=== PATIENT | male | born 1935 ===

== ENCOUNTER 2019-01-20 09:09 | Day surgery (SDC) | payer MEDICARE, OTHER ==
[~2019-01-20 09:09] MED LIST: Cefuroxime 10 MG/ML SYRINGE EYERT SCH; Lidocaine 1% PF 2 ML SDV INJECT SCH; Pilocarpine 4% Ophth Soln 15 ML Bot EYERT SCH
[2019-01-20] MEDS: Polymyxin B/Trimethoprim 10 ML Bottle EYERT SCH ×3 (09:31→12:01)
--- NOTE | 2019-01-20 09:33 | PCM.PREANE ---
Preanesthetic Assessment - Procedure Proposed Procedure: cataract extraction with IOL right eye - Anesthesia/Transfusion/Family Hx Anesthesia History: Prior Anesthesia Without Reaction Family History of Anesthesia Reaction: No Transfusion History: No Prior Transfusion(s) - Review of Systems General: No Symptoms Pulmonary: No Symptoms Cardiovascular: No Symptoms Gastrointestinal: No Symptoms Neurological: Numbness (bilateral hands), Weakness (left side to knee) Other: Reports: Easy Bleeding, Diabetes - Physical Assessment NPO Status Date: 01/19/19 NPO Status Time: 00:00 Height: 1.63 m Weight: 79.832 kg ASA Class: 2 Mental Status: Alert & Oriented x3 Dentition: Reports: Normal Dentition, [place](s) Thyro-Mental Finger Breadths: 3 Mouth Opening Finger Breadths: 3 ROM/Head Extension: Full Lungs: Clear to Auscultation, Normal Respiratory Effort Cardiovascular: Regular Rate, Regular Rhythm - Allergies Allergies/Adverse Reactions: Allergies Allergy/AdvReac Type Severity Reaction Status Date / Time No Known Allergies Allergy Verified 01/19/19 10:15 - Blood Blood Available: No Product(s) Available: None - Anesthesia Plan Pre-Op Medication Ordered: None - Acknowledgements Anesthesia Type Planned: MAC Pt an Appropriate Candidate for the Planned Anesthesia: Yes Alternatives and Risks of Anesthesia Discussed w Pt/Guardian: Yes Pt/Guardian Understands and Agrees with Anesthesia Plan: Yes PreAnesthesia Questionnaire Other HEENT History: WEARS GLASSES Gastrointestinal History: Reports: GERD Other Genitourinary History: BPH Other Musculoskeletal History: HX OF 20 YEARS AGO A WRIST FX THAT WAS JUST CASTED, R CTS, 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) - Past Surgical History Other HEENT Surgeries/Procedures: WISDOM TEETH REMOVED - HOME MEDS Home Medications: Home Meds Cholecalciferol (Vitamin D3) [Vitamin D3] 1,000 unit PO DAILY 09/15/14 [History] Fish Oil/DHA/EPA [Fish Oil 1,200 MG] 1,200 mg PO DAILY 09/15/14 [History] [place] 160 mg PO DAILY 09/15/14 [History] Ca Carbonate/Vitamin D3/Vit K [Calcium + D Soft Chewable Tab] 1 tab PO DAILY [History] Flaxseed Oil 1,000 mg PO DAILY 01/19/19 [History] Milk Thistle 150 mg PO DAILY 01/19/19 [History] Selenomethionine [Selenium] 200 mcg PO DAILY 01/19/19 [History] Vitamin A 8,000 unit PO DAILY 01/19/19 [History] Vitamin E 400 unit PO DAILY 01/19/19 [History] Zinc Gluconate 100 mg PO DAILY 01/19/19 [History] - CURRENT (IN HOUSE) MEDS Current Meds: Current Medications Brimonidine Tartrate (Alphagan 0.2% Oph Soln) 0 ml EYERT ASDIRECTED SOCORRO Stop: 01/20/19 18:00 Cefuroxime Sodium (Zinacef) 0 mg EYERT ASDIRECTED SOCORRO Stop: 01/20/19 18:00 Lidocaine HCl (Xylocaine-Mpf 1%) 1 ml INJECT ASDIRECTED SOCORRO Stop: 01/20/19 18:00 Phenylephrine HCl (Georgi-Synephrine 2.5% Oph Soln) 0 ml EYERT ASDIRECTED SOCORRO Stop: 01/20/19 18:00 Pilocarpine HCl (Pilocar 4% Oph Soln) 0 ml EYERT ASDIRECTED SOCORRO Stop: 01/20/19 18:00 Polymyxin/Trimethoprim Sulfate (Polytrim Oph Soln) 0 ml EYERT ASDIRECTED SOCORRO Stop: 01/20/19 18:00 Tetracaine HCl (Tetracaine 0.5% Steri-Unit Rachel) 0 ml EYERT ASDIRECTED SOCORRO Stop: 01/20/19 18:00 Tropicamide (Mydriacyl 1% Oph Soln) 0 ml EYERT ASDIRECTED SOCORRO Stop: 01/20/19 18:00
[2019-01-20] MEDS: Brimonidine 0.2% Ophth Soln 5 ML Bottle EYERT SCH ×3 (09:35→12:01)
[2019-01-20] MEDS: Phenylephrine 2.5% Ophth Soln 2 ML Bot EYERT SCH ×5 (09:40→11:42)
[2019-01-20] MEDS: Tropicamide 1% Ophth Soln 15 ML Bottle EYERT SCH ×4 (09:45→10:28)
[2019-01-20] MEDS: Tetracaine HCl/PF 0.5% 4 ML Bottle EYERT SCH ×4 (11:19→11:50)
--- NOTE | 2019-01-20 12:02 | PCM48HPAN ---
Post Anesthesia Note - EVALUATION WITHIN 48HRS OF ANESTHETIC Vital Signs in Normal Range: Yes Patient Participated in Evaluation: Yes Respiratory Function Stable: Yes Airway Patent: Yes Cardiovascular Function Stable: Yes Hydration Status Stable: Yes Pain Control Satisfactory: Yes Nausea and Vomiting Control Satisfactory: Yes Mental Status Recovered: Yes Vital Signs: Last Vital Signs Temp 97.8 F 01/20/19 09:20 Pulse 58 L 01/20/19 09:20 Resp 16 01/20/19 09:20 BP 150/82 H 01/20/19 09:20 Pulse Ox 99 01/20/19 09:20 100% 20 48 132/74
[2019-01-20 12:21] VITALS: BP 136/78; PULSE 62
== END 2019-01-20 12:15 | disposition home or self-care (01) ==
LOC: JD.SDS 09:09
PROVIDERS: ATTEND Ophthalmology
DX: H25.813 Combined forms of age-related cataract, bilateral (principal); H16.103 Unspecified superficial keratitis, bilateral; H16.223 Keratoconjunctivitis sicca, not specified as Sjogren's, bilateral; H02.834 Dermatochalasis of left upper eyelid; H02.831 Dermatochalasis of right upper eyelid; H21.81 Floppy iris syndrome; H21.41 Pupillary membranes, right eye; M19.90 Unspecified osteoarthritis, unspecified site; Z79.899 Other long term (current) drug therapy
CPT/HCPCS: 66982; J0697; J2001; V2632